=== PATIENT | male | born 1975 | race Caucasian/White ===

== ENCOUNTER 2018-07-03 18:16 | Emergency (ER) | payer SELFPAY ==
[2018-07-03] MEDS: LIDOCAINE 2%/EPI MPF (SDV) 20 ML VIAL INJ (19:38)
[2018-07-03 19:57] LABS: ADD MAN DIFF? NO
[2018-07-03 19:59] LABS: WHITE BLOOD COUNT 10.3 10^3/ul (4.8-10.8)
[2018-07-03 19:59] LABS: BASOPHIL # 0.1 10^3/ul (0.0-0.1); BASOPHILS % 0.7 % (0.0-2.0); EOSINOPHILS # 0.2 10^3/ul (0.0-0.5); EOSINOPHILS % 1.5 % (0.0-7.0); HEMATOCRIT 47.1 % (42.0-52.0); HEMOGLOBIN 15.7 g/dl (14.0-18.0); LYMPHOCYTES # 2.2 10^3/ul (0.8-2.9); LYMPHOCYTES % 21.7 % (15.0-51.0); MEAN CORPUSCULAR HEMOGLOBIN 29.2 pg (29.0-33.0); MEAN CORPUSCULAR HGB CONC 33.3 g/dl (32.0-37.0); MEAN CORPUSCULAR VOLUME 87.5 fl (82.0-101.0); MEAN PLATELET VOLUME 8.7 fl (7.4-10.4); MONOCYTE # 0.7 10^3/ul (0.3-0.9); MONOCYTES % 6.8 % (0.0-11.0); NEUTROPHIL # 7.1 10^3/ul (1.6-7.5); PLATELET COUNT 309 10^3/UL (140-415); RED BLOOD COUNT 5.38 10^6/ul (4.70-6.10); RED CELL DISTRIBUTION WIDTH 12.6 % (11.5-14.5)
[2018-07-03] MEDS: ONDANSETRON 4 MG INJ IV (20:07)
[2018-07-03] MEDS: morphine 4 MG/ML VIAL IV (20:07)
[2018-07-03] MEDS: SOD CHLORIDE 0.9% 1,000 ML IV (20:09)
[2018-07-03] MEDS: DIPHTH/TET/ACEL PERTUSS (ADULT) 0.5 ML VIAL IM* (20:09)
[2018-07-03 20:13] LABS: INR 0.96; PROTIME 12.9 Sec (11.9-14.9)
[2018-07-03 20:20] LABS: ALANINE AMINOTRANSFERASE 27 IU/L (13-69); ALBUMIN 4.4 g/dl (3.3-4.9); ALBUMIN/GLOBULIN RATIO 1.29; ALKALINE PHOSPHATASE 74 IU/L (42-121); ANION GAP 9 (5-13); ASPARTATE AMINO TRANSFERASE 24 IU/L (15-46); BILIRUBIN,INDIRECT 0.6 mg/dl (0-1.1); BILIRUBIN,TOTAL 0.6 mg/dl (0.2-1.3); BLOOD UREA NITROGEN 13 mg/dl (7-20); CALCIUM 9.5 mg/dl (8.4-10.2); CARBON DIOXIDE 29 mmol/L (21-31); CHLORIDE 103 mmol/L (97-110); CREATININE 0.76 mg/dl (0.61-1.24); Estimated GFR > 60 mL/min (>60); GLUCOSE 98 mg/dl (70-220); LIPASE 91 U/L (23-300); POTASSIUM 3.8 mmol/L (3.5-5.1); SODIUM 141 mmol/L (135-144); TOTAL PROTEIN 7.8 g/dl (6.1-8.1)
[2018-07-03] MEDS: LIDOCAINE 2%/EPI (MDV) 20ML INJ INJ (20:28)
[2018-07-03] MEDS: SOD CHLORIDE 0.9% 100 ML (20:37)
[2018-07-03] MEDS: IOHEXOL 300MG/ML 150 ML BTL (20:37)
== END 2018-07-03 22:53 | disposition home or self-care (01) ==
LOC: FTE 18:16 → E/R 22:53
DX: S01.81XA Laceration without foreign body of other part of head, initial encounter (principal); S63.502A Unspecified sprain of left wrist, initial encounter; S06.0X1A Concussion with loss of consciousness of 30 minutes or less, initial encounter; R40.2142 Coma scale, eyes open, spontaneous, at arrival to emergency department; R40.2252 Coma scale, best verbal response, oriented, at arrival to emergency department; R40.2362 Coma scale, best motor response, obeys commands, at arrival to emergency department; M79.604 Pain in right leg; W17.89XA Other fall from one level to another, initial encounter; Y92.89 Other specified places as the place of occurrence of the external cause; Z23 Encounter for immunization
CPT/HCPCS: 12014; 36415; 70450; 71260; 72125; 73110-LT; 73590; 74177; 80053; 83690; 85025; 85610; 85730; 90471; 90715; 96361; 96374; 96375; 99285-25

== ENCOUNTER 2018-07-10 11:14 | Emergency (ER) | payer SELFPAY | END 2018-07-10 14:08 | disposition home or self-care (01) | LOC: E/R 14:08 | DX: S63.502A Unspecified sprain of left wrist, initial encounter (principal); W10.9XXA Fall (on) (from) unspecified stairs and steps, initial encounter; Y92.9 Unspecified place or not applicable; Z48.02 Encounter for removal of sutures | CPT/HCPCS: 73110; 73110-LT; 99283-25 ==

== ENCOUNTER 2018-07-17 18:24 | Emergency (ER) | payer SELFPAY | END 2018-07-17 19:41 | disposition home or self-care (01) | LOC: E/R 19:41 | DX: Z48.02 Encounter for removal of sutures (principal) | CPT/HCPCS: 99281 ==